=== PATIENT | female | born 1985 | race Caucasian/White ===

== ENCOUNTER 2019-12-01 21:46 | Emergency (ER) | payer SELFPAY ==
[~2019-12-01] VITALS: Ht 170.2 cm; Wt 72.6 kg
[2019-12-01] MEDS ORDERED: EYE IRRIGATION (OPTH) 120 ML BTL ONE (22:10)
[2019-12-01] MEDS ORDERED: FLUORESCEIN SOD(OPTH) 1 MG STRP ONE (22:10)
[2019-12-01] MEDS ORDERED: TETRACAINE HCL 0.5% OPTH SOLN 4 ML BTL ONE (22:10)
--- NOTE | 2019-12-01 22:20 | Emergency Department Note ---
History of Present Illnes History of Present Illness Chief Complaint: Eye, Ear, Nose, Throat, Dental History of Present Illness This is a 34 year old female Chief Complaint Comment 34 y/o female pt AAOx3 presents to ED with redness and inflammation to right eye; pt was seen at Urgent Care and DC instructions stated foreign body / conjunctivitis; pt was prescribed Tobramycin x4 days ago with no improvement. 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 Any updates have been documented here. Past Medical History Recent Fever: No Clinical Suspicion of Infectio: No New/Unexplained Change in Ment: No Past Medical History: None Past Surgical History: Cholecysctectomy, Review of Systems Review of Systems Constitutional: Reports no symptoms EENTM: Reports as per HPI, Reports eye pain (And discharge) Cardiovascular: Reports no symptoms Respiratory: Reports no symptoms Gastrointestinal: Reports no symptoms Genitourinary: Reports no symptoms Musculoskeletal: Reports no symptoms Integumentary: Reports no symptoms Neurological: Reports no symptoms Psychological: Reports no symptoms Endocrine: Reports no symptoms Hematological/Lymphatic: Reports no symptoms Physical Exam Related Data Allergies: Coded Allergies: No Known Allergies (Unverified , 12/01/19) Triage Vital Signs Vital Signs Date Time Temp Pulse Resp B/P (MAP) Pulse Ox O2 Delivery O2 Flow Rate FiO2 12/01/19 21:59 98.2 96 18 142/87 99 Room Air Vital signs reviewed: Yes Physical Exam CONSTITUTIONAL Constitutional: Present well-developed, Present well-nourished HENT HENT: Present normocephalic, Present atraumatic, Present oropharynx clear/moist, Present nose normal HENT L/R: Present left ext ear normal, Present right ext ear normal EYES Eyes: Reports PERRL, Reports conjunctivae normal, Reports EOM normal, Reports lids normal, Reports left eye discharge (Injected conjuntiva), Reports other (Slit lamp sowsno foreign bodies, no fluorescin uptake) NECK Neck: Present ROM normal PULMONARY Pulmonary: Present effort normal, Present breath sounds normal CARDIOVASCULAR Cardiovascular: Present regular rhythm, Present heart sounds normal, Present capillary refill normal, Present normal rate GASTROINTESTINAL Abdominal: Present soft, Present nontender, Present bowel sounds normal GENITOURINARY Genitourinary: Present exam deferred SKIN Skin: Present warm, Present dry MUSCULOSKELETAL Musculoskeletal: Present ROM normal NEUROLOGICAL Neurological: Present alert, Present oriented x 3, Present no gross motor or sensory deficits PSYCHOLOGICAL Psychological: Present mood/affect normal, Present judgement normal Assessment & Plan Medical Decision Making MDM 34-year-old female presents for left eye irritation. She states that she was diagnosed with conjunctivitis 4 days ago and is on tobramycin eyedrops which have not helped. She continues to wear her contacts. She is only taking the tobramycin for 1 day. Examination is consistent with conjunctivitis and will treat as such with levofloxacin eyedrops. She was instructed to refrain from wearing her contacts until the infection has cleared. Patient states. Plan she is appropriate for discharge. Assessment & Plan Final Impression: (1) Bacterial conjunctivitis Depart Disposition: HOME, SELF-CARE Last Vital Signs Date Time Temp Pulse Resp B/P (MAP) Pulse Ox O2 Delivery O2 Flow Rate FiO2 12/01/19 21:59 98.2 96 18 142/87 99 Room Air Medications in the ED Tetracaine HCl 4 ml STK-MED ONCE .ROUTE ; Start 12/01/19 at 22:10; Stop 12/01/19 at 22:04; Status DC Fluorescein Sodium 1 mg STK-MED ONCE .ROUTE ; Start 12/01/19 at 22:10; Stop 12/01/19 at 22:04; Status DC Eye Irrigation Solution 120 ml STK-MED ONCE .ROUTE ; Start 12/01/19 at 22:10; Stop 12/01/19 at 22:04; Status DC VICENTA VERA MD Dec 01, 2019 22:20
== END 2019-12-01 22:30 | disposition home or self-care (01) ==
LOC: ER 21:52
DX: H10.89 Other conjunctivitis (principal); B96.89 Other specified bacterial agents as the cause of diseases classified elsewhere
CPT/HCPCS: 99283